=== PATIENT | female | born 1950 | race Caucasian/White ===

== ENCOUNTER → 2016-12-25 | Outpatient (CLI) | payer BC, OTHER ==
[~2016-12-25] MED LIST: ALLEGRA180 MG PO; BACTRIM,SEPT1 TABLET PO; CALCIUM 500 MG1 EACH PO; CELEXA20 MG PO; DAILY VALUE1 EACH PO; FIBER THERAPY0.52 GM PO; FLEXERIL10 MG PO; FLOVENT DISKUS1 DIS2 IH; LYRICA50 MG PO; MOBIC7.5 MG PO; PROBIOTIC COMP1 EACH PO; PROTONIX40 MG PO; PROVENTIL HFA6.7 GM IH; PROVENTIL,2.5 MG/3 M IH; PROVIGIL200 MG PO; Protonix PO; Proventil,Ventolin H IH; ULTRAM50 MG PO; VICODIN 5-3001 EACH PO; VISTARIL25 MG PO; VITAMIN B COMP1 EACH PO; VITAMIN B-12500 MC5 SL; VITAMIN B12 PO; ZANTAC150 MG PO; ZYRTEC10 M2 PO; celeXA PO
== END | disposition home or self-care (01) ==
LOC: AMB 06:55
DX: Z12.11 Encounter for screening for malignant neoplasm of colon (principal); D12.0 Benign neoplasm of cecum; D12.2 Benign neoplasm of ascending colon; D12.3 Benign neoplasm of transverse colon; D12.5 Benign neoplasm of sigmoid colon; K63.5 Polyp of colon; K59.00 Constipation, unspecified; Z86.010 Personal history of colon polyps; R10.13 Epigastric pain; Z98.84 Bariatric surgery status; Z80.0 Family history of malignant neoplasm of digestive organs; J45.909 Unspecified asthma, uncomplicated; K21.9 Gastro-esophageal reflux disease without esophagitis; E78.5 Hyperlipidemia, unspecified; F32.9 Major depressive disorder, single episode, unspecified; M79.7 Fibromyalgia; Z82.49 Family history of ischemic heart disease and other diseases of the circulatory system; Z88.6 Allergy status to analgesic agent
CPT/HCPCS: 88305

== ENCOUNTER 2017-02-22 16:13 | Emergency (ER) | payer BC, OTHER ==
[~2017-02-22] VITALS: Ht 165.1 cm; Wt 74.0 kg
[2017-02-22 17:14] LABS: HEMATOCRIT 44.6 % (36.0-46.0); MCH 28.9 PG (29.0-34.0); MCHC 32.5 G/DL (30.0-36.0); MCV 88.8 FL (83-99); MEAN PLAT.VOLUME 9.1 uM^3 (9.5-12.4); PLATELET COUNT 287 K/uL (156-360); RBC DIS.WIDTH-CV 12.3 % (11.8-14.6); RBC DIS.WIDTH-SD 39.8 % (39-53); RED BLOOD COUNT 5.02 M/uL (3.80-5.20); WHITE BLOOD COUNT 7.8 K/uL (4.1-10.2)
[2017-02-22 17:27] LABS: CHLORIDE 106 mEq/L (99-109); POTASSIUM 3.7 mEq/L (3.7-5.4); SODIUM 140 mEq/L (136-147)
[2017-02-22 17:29] LABS: GLUCOSE 91 mg/dL (70-99)
[2017-02-22 17:30] LABS: ANION GAP 10 MEQ/L (2-14)
[2017-02-22 17:33] LABS: GFR ESTIMATE (CALCULATED) > 59 mL/min/; UREA NITROGEN (BUN) 11 mg/dL (9-23)
[2017-02-22] MEDS ORDERED: MECLIZINE HCL25 MG PO (21:51)
[2017-02-22 22:10] VITALS: BP 105/69
== END 2017-02-22 22:10 | disposition home or self-care (01) ==
LOC: EME 16:13
DX: R42 Dizziness and giddiness (principal); Z98.890 Other specified postprocedural states; M79.7 Fibromyalgia; K21.9 Gastro-esophageal reflux disease without esophagitis; J45.909 Unspecified asthma, uncomplicated; F32.9 Major depressive disorder, single episode, unspecified; Z98.84 Bariatric surgery status; Z90.49 Acquired absence of other specified parts of digestive tract; Z88.8 Allergy status to other drugs, medicaments and biological substances
CPT/HCPCS: 70450; 71020; 80048; 85027; 93005; 99281; 99284

== ENCOUNTER 2017-11-30 18:26 | Emergency (ER) | payer BC, OTHER ==
[~2017-11-30] VITALS: Ht 165.1 cm; Wt 79.2 kg
[~2017-11-30 18:26] MED LIST changes: +MECLIZINE HCL25 MG PO
[2017-11-30 19:36] LABS: HEMATOCRIT 37.9 % (36.0-46.0); HEMOGLOBIN 12.8 G/DL (11.9-15.5); MCH 28.8 PG (29.0-34.0); MCHC 33.8 G/DL (30.0-36.0); MCV 85.2 FL (83-99); PLATELET COUNT 205 K/uL (156-360); RBC DIS.WIDTH-SD 40.7 % (39-53); RED BLOOD COUNT 4.45 M/uL (3.80-5.20); WHITE BLOOD COUNT 19.6 K/uL (4.1-10.2)
[2017-11-30 19:48] LABS: ALBUMIN 3.5 g/dL (3.2-4.8); CHLORIDE 101 mEq/L (99-109); POTASSIUM 3.9 mEq/L (3.7-5.4); SODIUM 133 mEq/L (136-147)
[2017-11-30 19:50] LABS: GLUCOSE 147 mg/dL (70-99); TOTAL PROTEIN 6.6 g/dL (6.4-8.3)
[2017-11-30 19:52] LABS: TOTAL BILIRUBIN 0.7 mg/dL (0.0-1.0)
[2017-11-30 19:54] LABS: ALKALINE PHOSPHATASE 137 IU/L (3-129); CREATININE 0.9 mg/dL (0.6-1.3); GFR ESTIMATE (CALCULATED) > 59 mL/min/
[2017-11-30 19:55] LABS: UREA NITROGEN (BUN) 18 mg/dL (9-23)
[2017-11-30 19:56] LABS: AST (GOT) 35 IU/L (2-34)
[2017-11-30 19:57] LABS: ALT (GPT) 48 IU/L (3-49)
[2017-11-30] MEDS ORDERED: BENTYL20 MG PO (20:19)
[2017-11-30] MEDS ORDERED: SINGULAIR10 MG PO (20:20)
[2017-11-30] MEDS ORDERED: DOXYCYCLINE MO100 MG PO (21:32)
[2017-11-30 21:41] VITALS: BP 106/61
== END 2017-11-30 21:42 | disposition home or self-care (01) ==
LOC: EME 18:26
DX: L03.115 Cellulitis of right lower limb (principal); K21.9 Gastro-esophageal reflux disease without esophagitis; M79.7 Fibromyalgia; J45.909 Unspecified asthma, uncomplicated; F32.9 Major depressive disorder, single episode, unspecified; Z90.49 Acquired absence of other specified parts of digestive tract; Z98.84 Bariatric surgery status
CPT/HCPCS: 80053; 83605; 85027; 87040; 87801; 99281; 99284; J7030; J7050